=== PATIENT | female | born 1995 | race Caucasian/White ===

== ENCOUNTER 2019-12-03 15:11 | Emergency (ER) | payer MEDICAID ==
--- NOTE | 2019-12-03 15:48 | EDM.PDOC ---
ED HPI GENERAL MEDICAL PROBLEM - General Chief Complaint: Back Pain or Injury Stated Complaint: FELL ON ICE Time Seen by Provider: 12/03/19 15:47 Source of Information: Reports: Patient - History of Present Illness INITIAL COMMENTS - FREE TEXT/NARRATIVE: HISTORY AND PHYSICAL: History of present illness: [Patient presents with coccygeal pain, she is fell and slipped on the ice complains of 8 out of 10 pain no fever nausea vomiting chills sweats no lumbar pain level footdrop saddle anesthesia bowel or urine symptoms ] Review of systems: As per history of present illness and below otherwise all systems reviewed and negative. Past medical history: As per history of present illness and as reviewed below otherwise noncontributory. Surgical history: As per history of present illness and as reviewed below otherwise noncontributory. Social history: No reported history of drug or alcohol abuse. Family history: As per history of present illness and as reviewed below otherwise noncontributory. Physical exam: HEENT: Atraumatic, normocephalic, pupils reactive, negative for conjunctival pallor or scleral icterus, mucous membranes moist, throat clear, neck supple, nontender, trachea midline. Lungs: Clear to auscultation, breath sounds equal bilaterally, chest nontender. Heart: S1S2, regular, negative for clicks, rubs, or JVD. Abdomen: Soft, nondistended, nontender. Negative for masses or hepatosplenomegaly. Negative for costovertebral tenderness. Pelvis: Stable nontender. Genitourinary: Deferred. Rectal: Deferred. Extremities: Atraumatic, negative for cords or calf pain. Neurovascular unremarkable. Neuro: Awake, alert, oriented. Cranial nerves II through XII unremarkable. Cerebellum unremarkable. Motor and sensory unremarkable throughout. Exam nonfocal. Diagnostics: [Sacrum and coccyx ] The as patient currently menstruating and IUD in place Therapeutics: [Rest ice ibuprofen ]tramadol Impression: [Pain/fall] Fusion coccyx Definitive disposition and diagnosis as appropriate pending reevaluation and review of above. tailbone Pain Score (Numeric/FACES): 10 - Related Data Allergies Allergy/AdvReac Type Severity Reaction Status Date / Time Penicillins Allergy Itching Verified 12/03/19 15:47 Home Meds: Home Meds . [No Known Home Meds] 12/03/19 [History] ED ROS GENERAL - Review of Systems Review Of Systems: See Below ED EXAM, GENERAL - Physical Exam Exam: See Below Course - Vital Signs Last Recorded V/S: Last Vital Signs Temp 97.7 F 12/03/19 15:44 Pulse 131 H 12/03/19 15:44 Resp 18 12/03/19 15:44 BP 158/99 H 12/03/19 15:44 Pulse Ox 98 12/03/19 15:44 Departure - Departure Time of Disposition: 16:30 Disposition: Home, Self-Care 01 Condition: Good Clinical Impression: Coccyx pain - Discharge Information Referrals: PCP,None [Primary Care Provider] - Forms: ED Department Discharge Additional Instructions: The following information is given to patients seen in the emergency department who are being discharged to home. This information is to outline your options for follow-up care. We provide all patients seen in our emergency department with a follow-up referral. The need for follow-up, as well as the timing and circumstances, are variable depending upon the specifics of your emergency department visit. If you don't have a primary care physician on staff, we will provide you with a referral. We always advise you to contact your personal physician following an emergency department visit to inform them of the circumstance of the visit and for follow-up with them and/or the need for any referrals to a consulting specialist. The emergency department will also refer you to a specialist when appropriate. This referral assures that you have the opportunity for follow-up care with a specialist. All of these measure are taken in an effort to provide you with optimal care, which includes your follow-up. Under all circumstances we always encourage you to contact your private physician who remains a resource for coordinating your care. When calling for follow-up care, please make the office aware that this follow-up is from your recent emergency room visit. If for any reason you are refused follow-up, please contact the [facility] emergency department at and asked to speak to the emergency department charge nurse. Sepsis Event Note - Evaluation Sepsis Screening Result: No Definite Risk - Focused Exam Vital Signs: Vital Signs Temp Pulse Resp BP Pulse Ox 12/03/19 15:44 97.7 F 131 H 18 158/99 H 98 Date Exam was Performed: 12/03/19 Time Exam was Performed: 16:30
--- NOTE | 2019-12-03 16:29 | CR ---
Sacrum and coccyx: 3 views of the sacrum and coccyx were obtained. Comparison: No previous study. IUD is present within the pelvis. Sacroiliac joints appear within normal limits. No fracture or other abnormality is appreciated. Impression: 1. Nothing acute is appreciated on 3 view sacrum and coccyx study. Diagnostic code #1 This report was dictated in [place] Standard Time
[2019-12-03] MEDS ORDERED: Ketorolac 60 MG/2 ML SDV IM ONE (17:03)
== END 2019-12-03 17:22 | disposition home or self-care (01) ==
LOC: MW.ED 15:11
DX: M43.28 Fusion of spine, sacral and sacrococcygeal region (principal); Z88.0 Allergy status to penicillin; W00.0XXA Fall on same level due to ice and snow, initial encounter
CPT/HCPCS: 72220; 96372; 99283; J1885